=== PATIENT | female | born 1965 | race Caucasian/White ===

== ENCOUNTER → 2022-06-22 14:22 | Outpatient (BNVA) | payer OTHER, SELFPAY | PROVIDERS: PCP Nurse Practitioner Family; Visit Provider Nurse Practitioner Family | DX: R52 Pain, unspecified (principal) | CPT/HCPCS: 73562 ==

== ENCOUNTER 2022-07-15 08:41 | Outpatient (CLI) | payer OTHER, SELFPAY ==
--- NOTE | 2022-07-15 08:45 | MR_ITS ---
WS: [id number] MRI RIGHT KNEE NONCONTRAST TECHNIQUE: Axial PD, coronal PD fat sat, coronal PD, sagittal PD, and sagittal PD fat-sat images obta ined. CLINICAL INFORMATION: M25.569 - Pain in unspecified knee COMPARISON: None. FINDINGS: Distal quadriceps and patella tendons are intact. Hypertrophic patella. Moderate suprapatellar effusi on. Normal ACL and PCL. Chronic thinning of the medial and lateral meniscus. No acute appearing menis varinder tears. Medial and lateral collateral ligaments appear intact. Increased signal abnormality consis tent with partial tear involving the LCL at the origin. Normal popliteus. Fibula head appears normal. 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 Mild chondromalacia patella.Tiny popliteal cyst measuring 2.1 x 0.7 x 2.3 cm MR/MR knee RT wo con* [id number] IMPRESSION: 1. Normal ACL and PCL. 2. Chronic thinning of the medial and lateral meniscus. No acute appearing men iscal tears. 3. Partial tear involving the origin of the LCL with increased signal abnormal ity. LCL appears intact. 4. Normal MCL. 5. Tiny popliteal cyst. 6. Moderate joint effusion with mild chondromalacia patella. Outbridge grading:
== END 2022-07-15 08:42 | disposition home or self-care (01) ==
LOC: RAD 08:47
PROVIDERS: PCP Nurse Practitioner Family; Visit Provider Nurse Practitioner Family
DX: S83.421A Sprain of lateral collateral ligament of right knee, initial encounter (principal); X58.XXXA Exposure to other specified factors, initial encounter; M71.21 Synovial cyst of popliteal space [Baker], right knee; M25.461 Effusion, right knee; M22.41 Chondromalacia patellae, right knee
CPT/HCPCS: 73721

== ENCOUNTER 2023-01-02 08:36 | Outpatient (CLI) | payer OTHER, SELFPAY ==
--- NOTE | 2023-01-02 08:42 | MM_ITS ---
WS: [id number] SCREENING DIGITAL TOMOSYNTHESIS MAMMOGRAM WITH CAD HISTORY: SCREENING COMPARISON: None available. Bilateral CC and MLO with tomosynthesis views submitted. Synthetic mammography reviewed. Computer aid ed detection analyzed. Breast composition: There are scattered areas of fibroglandular density. No suspicious masses, microc alcifications or architectural distortion. IMPRESSION: MM/[place] [id number] BI-RADS: 1-Negative FOLLOW UP: 1 Year Follow-up
== END 2023-01-02 08:37 | disposition home or self-care (01) ==
LOC: RAD 08:37
PROVIDERS: PCP Family Medicine; Visit Provider Family Medicine
DX: Z12.31 Encounter for screening mammogram for malignant neoplasm of breast (principal)
CPT/HCPCS: 77063; 77067

== ENCOUNTER 2023-01-05 09:59 | Outpatient (CLI) | payer OTHER, SELFPAY ==
--- NOTE | 2023-01-05 | US_ITS ---
WS: [id number] Complete ABDOMINAL ULTRASOUND HISTORY: Hyperbilirubinemia COMPARISON: None available. Liver: 15.0 cm in length. Coarse echotexture with poor penetration of the liver. The entire liver is not very well visualized. No bile duct dilatation. Portal Vein: Normal hepatopetal flow with monophasic waveform. Gallbladder: Prior cholecystectomy. CBD: 0.7 cm Pancreas: Poorly visualized. Head and tail are obscured by bowel gas. Right kidney: 11.3 cm x 5.9 x 5.7 cm. Cortex: 1.2 cm. Normal size and echogenicity. No hydronephrosis or mass. Left kidney: 10.6 cm x 5.7 cm x 5.7 cm. Cortex: 1.3 cm. Normal size and echogenicity. No hydronephrosis or mass. Spleen: 8.0 cm in length. Normal. Aorta and IVC: Unremarkable abdominal aorta and IVC. Impression: 1. Prior cholecystectomy. 2. Normal size liver with marked hepatic steatosis. The entire liver is not well visualized due to th e attenuation. 3. Partial visualization of the pancreas. 4. No renal obstruction.
== END 2023-01-05 10:00 | disposition home or self-care (01) ==
LOC: RAD 09:59
PROVIDERS: PCP Family Medicine; Visit Provider Family Medicine
DX: E80.6 Other disorders of bilirubin metabolism (principal); Z90.49 Acquired absence of other specified parts of digestive tract; K76.0 Fatty (change of) liver, not elsewhere classified
CPT/HCPCS: 76700

== ENCOUNTER 2023-02-06 07:40 | Outpatient (CLI) | payer OTHER, SELFPAY ==
--- NOTE | 2023-02-06 07:47 | US_ITS ---
WS: [id number] ULTRASOUND BILATERAL BREAST HISTORY: Bilateral breast pain. Mammogram was negative. COMPARISON: Mammogram 01/02/2023 TECHNIQUE: 2-D and Doppler. Bilateral breast ultrasound is performed to the areas of pain as indicated by the patient. RIGHT breast: Ultrasound at 2:00, 3:00 and 9:00 as directed by the patient. No abnormalities. LEFT breast: Ultrasound at 2:00, 3:00 and 9:00 as directed by the patient. No abnormalities. IMPRESSION: US/US breast BI limited* [id number] BI-RADS: 1-Negative FOLLOW-UP: 1 Year Follow-up
== END 2023-02-06 07:41 | disposition home or self-care (01) ==
LOC: RAD 07:40
PROVIDERS: PCP Family Medicine; Visit Provider Family Medicine
DX: R92.2 Inconclusive mammogram (principal); N64.4 Mastodynia
CPT/HCPCS: 76642

== ENCOUNTER 2024-01-15 10:32 | Outpatient (CLI) | payer OTHER, SELFPAY ==
--- NOTE | 2024-01-15 10:36 | MM_ITS ---
WS: [id number] VIEWS: MLO and CC views both breasts. 3D digital tomosynthesis is also included in this exam. Comparison made with prior exam of 09/14/2011, 09/21/2012, 11/09/2014, 05/24/2018, 06/15/2020, 01/02/2023.. Findings: There are scattered areas of fibroglandular density. No suspicious mass, tumor calcification or architectural distortion. Several small stable appearing n odules noted bilaterally. MM/MM scr BI tomosynthesis [id number] Impression: BI-RADS: 2 - Benign FOLLOW-UP: 1 Year Follow-up This mammogram was also analyzed by the Computer Aided Detection System R2 Imag e Radiation Oncology Therapist.
== END 2024-01-15 10:33 | disposition home or self-care (01) ==
LOC: RAD 10:33
PROVIDERS: PCP Family Medicine; Visit Provider Family Medicine
DX: Z12.31 Encounter for screening mammogram for malignant neoplasm of breast (principal); R92.323 Mammographic fibroglandular density, bilateral breasts
CPT/HCPCS: 77063; 77067

== ENCOUNTER 2024-12-03 13:15 | Outpatient (CLI) | payer OTHER, SELFPAY ==
[2024-12-03 14:01] VITALS: PULSE 66; RESP 18; O2SAT 96
== END 2024-12-03 13:16 | disposition home or self-care (01) ==
PROVIDERS: PCP Family Medicine; Visit Provider Chiropractor
DX: J45.998 Other asthma (principal)
CPT/HCPCS: 94060; J7613

== ENCOUNTER 2025-01-02 13:06 | Outpatient (CLI) | payer OTHER, SELFPAY ==
--- NOTE | 2025-01-02 13:20 | USCV_ITS ---
Zhane Clements Age: 59 Gender: F : 1965 Exam Date: 01/02/2025 13:49 Ordering Phys: Paul Lopez Technologist: Exam Location: [facility] [place] Indication: cp sob cad BP: 138 / 73 HR: 68 Rhythm: Sinus Technical Quality: Adequate MEASUREMENTS (Male / Female) Normal Values 2D ECHO LV Diastolic Diameter PLAX 3.8 cm 4.2 - 5.9 / 3.9 - 5.3 cm IVS Diastolic Thickness 1.3 cm 0.6 - 1.0 / 0.6 - 0.9 cm IVS Systolic Thickness 1.7 cm LVPW Diastolic Thickness 1.4 cm 0.6 - 1.0 / 0.6 - 0.9 cm LVPW Systolic Thickness 1.7 cm LVOT Diameter 2.0 cm LV Ejection Fraction 2D Teich 65.9 % LV Ejection Fraction MOD 4C 66.1 % LV Ejection Fraction MOD 2C 71.7 % LV Ejection Fraction 2C AL 73.9 % LA Diameter 3.6 cm RA Systolic Volume 4C AL 28.9 ml RA Systolic Volume 4C MOD 28.1 ml LA Sys Volume AL 40.4 cm cubed LA Sys Volume Index AL 21.8 cm cubed/m squared Aorta at Sinotubular Diameter 2.5 cm IVC Diameter 2.0 cm M-MODE LA Ao Ratio MM 1.3 AV Cusp Separation MM 2.1 cm DOPPLER AV Peak Velocity 123.0 cm/s LVOT Peak Velocity 101.0 cm/s AV Area Cont Eq vti 3.1 cm squared AV Area Cont Eq pk 2.6 cm squared MV Peak Velocity 114.0 cm/s MV Area PHT 3.0 cm squared Mitral E to A Ratio 0.9 TV Peak Velocity 165.5 cm/s TR Peak Velocity 176.0 cm/s TR Peak Gradient 12.4 mmHg TV Peak E Velocity 87.0 cm/s PV Peak Velocity 130.0 cm/s FINDINGS Left Ventricle Normal left ventricular size and systolic function, EF 74%.no regional wall motion abnormalities. Mild left ventricular hypertrophy. Right Ventricle Normal right ventricular size and systolic function. Right Atrium Normal right atrial size. Left Atrium Normal left atrial size. IA Septum Normal appearance of the interatrial septum. Mitral Valve No gross abnormalities noted Aortic Valve Thickened aortic valve. Tricuspid Valve No gross abnormalities noted Pulmonic Valve No gross abnormalities noted Pericardium No pericardial effusion. Aorta No evidence of any aneurysm expansion IVC Normal inferior vena cava. CONCLUSIONS Normal left ventricular size and systolic function, EF 74%.no regional wall motion abnormalities. Mild left ventricular hypertrophy. Thickened aortic valve. There is no pericardial effusion. There are no intracardiac masses. No similar previous studies are available for comparison Dr Spencer Hernández MD FACC (Electronically Signed) Final Date: 02 January 2025 23:08 S
--- NOTE | 2025-01-02 14:14 | ECG_ITS ---
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
== END 2025-01-02 13:07 | disposition home or self-care (01) ==
PROVIDERS: PCP Family Medicine; Visit Provider Chiropractor
DX: I25.10 Atherosclerotic heart disease of native coronary artery without angina pectoris (principal); I51.7 Cardiomegaly; I35.8 Other nonrheumatic aortic valve disorders
CPT/HCPCS: 93005; 93306